=== PATIENT | female | born 1985 | race African-American/Black ===

== ENCOUNTER → 2019-12-11 | Outpatient (CLI) | payer OTHER | LOC: M SLEEP 19:34 | PROVIDERS: ATTEND Nurse Practitioner Family | DX: G47.33 Obstructive sleep apnea (adult) (pediatric) (principal) ==

== ENCOUNTER 2022-11-03 22:57 | Inpatient (IN) | payer OTHER ==
[~2022-11-03] VITALS: Ht 175.3 cm; Wt 131.5 kg
[2022-11-03] MEDS ORDERED: PROZ40CA PO (23:08)
[2022-11-03] MEDS ORDERED: PANTOPRAZOLE 40MG VIAL IV ONE (23:55)
[2022-11-03] MEDS ORDERED: GI COCKTAIL 50ML BTL(HYOSCYAMINE/MAALOX/LIDOCAINE VISCOUS)(1:3:1) PO ONE (23:55)
[2022-11-04] MEDS ORDERED: ISOVUE-370 76% 100ML VIAL As Ordered ONE (00:26)
[2022-11-04 00:29] LABS: BASO # 0.1 10^3/uL (0.0-0.2); BASO % 0.5 % (0.0-1.0); EOS # 0.3 10^3/uL (0.0-0.5); EOS % 3.1 % (0.0-3.0); HEMATOCRIT 40.6 % (36.0-47.0); HEMOGLOBIN 13.1 g/dl (12.0-15.5); LYMPH # 3.9 10^3/uL (1.5-5.0); LYMPH % 37.8 % (24.0-44.0); MEAN CORPUSCULAR HEMOGLOBIN 28.9 pg (27.0-33.0); MEAN CORPUSCULAR HGB CONC 32.3 g/dl (32.0-36.5); MEAN CORPUSCULAR VOLUME 89.6 fl (80.0-96.0); MONO # 0.7 10^3/uL (0.0-0.8); MONO % 6.4 % (2.0-8.0); NEUTROPHILS # 5.3 10^3/uL (1.5-8.5); NEUTROPHILS % 51.4 % (36.0-66.0); PLATELET COUNT, AUTOMATED 299 10^3/uL (150-450); RED BLOOD COUNT 4.53 10^6/uL (4.00-5.40); WHITE BLOOD COUNT 10.4 10^3/uL (4.0-10.0)
[2022-11-04] MEDS ORDERED: ONDANSETRON 4MG 2ML VIAL IV ONE (00:40)
[2022-11-04 01:02] LABS: ALBUMIN 3.7 G/DL (3.2-5.2); BILIRUBIN,DIRECT 0.1 MG/DL (<0.4); BILIRUBIN,TOTAL 0.4 MG/DL (0.3-1.2); TOTAL PROTEIN 7.8 G/DL (5.7-8.2)
[2022-11-04] MEDS ORDERED: CETI-24 PO (02:11)
[2022-11-04] MEDS ORDERED: MULT400T10 PO (02:11)
[2022-11-04] MEDS ORDERED: VITATAB73 PO (02:11)
[2022-11-04] MEDS ORDERED: MONT10TA97 PO (02:11)
[2022-11-04] MEDS ORDERED: FLUO1TAB3 PO (02:11)
[2022-11-04] MEDS ORDERED: MAGN400T2 PO (02:11)
[2022-11-04] MEDS ORDERED: AMIT10TA7 PO (02:11)
[2022-11-04] MEDS ORDERED: HOME MED LIST COMPLETE! XX SCH (02:15)
[2022-11-04] MEDS ORDERED: PIPERACILLIN/TAZOBACTAM SOD 3.375 GM in D5W MINI-BAG PLUS 50 ML IV ONE (02:20)
[2022-11-04] MEDS: NS 1,000 ML IV SCH ×2 (02:25→10:17)
[2022-11-04 02:41] LABS: RSV AMPLIFICATION NEGATIVE (NEGATIVE)
[2022-11-04 03:45] VITALS: BP 146/78
[2022-11-04 06:53] LABS: BASO # 0.1 10^3/uL (0.0-0.2); BASO % 0.5 % (0.0-1.0); EOS # 0.3 10^3/uL (0.0-0.5); EOS % 3.6 % (0.0-3.0); HEMATOCRIT 37.4 % (36.0-47.0); HEMOGLOBIN 12.1 g/dl (12.0-15.5); LYMPH # 3.9 10^3/uL (1.5-5.0); LYMPH % 41.6 % (24.0-44.0); MEAN CORPUSCULAR HEMOGLOBIN 28.9 pg (27.0-33.0); MEAN CORPUSCULAR HGB CONC 32.4 g/dl (32.0-36.5); MEAN CORPUSCULAR VOLUME 89.5 fl (80.0-96.0); MONO # 0.7 10^3/uL (0.0-0.8); MONO % 7.8 % (2.0-8.0); NEUTROPHILS # 4.2 10^3/uL (1.5-8.5); NEUTROPHILS % 45.4 % (36.0-66.0); PLATELET COUNT, AUTOMATED 291 10^3/uL (150-450); RED BLOOD COUNT 4.18 10^6/uL (4.00-5.40); WHITE BLOOD COUNT 9.3 10^3/uL (4.0-10.0)
[2022-11-04 07:13] LABS: BLOOD UREA NITROGEN 10 MG/DL (9-23); CALCIUM LEVEL 8.1 MG/DL (8.5-10.1); CARBON DIOXIDE LEVEL 25 MMOL/L (20-31); CHLORIDE LEVEL 106 MMOL/L (98-107); CREATININE FOR GFR 0.84 MG/DL (0.55-1.30); GLOMERULAR FILTRATION RATE > 60.0 (>60); GLUCOSE, FASTING 89 MG/DL (60-100); POTASSIUM SERUM 4.2 MMOL/L (3.5-5.1); SODIUM LEVEL 137 MMOL/L (136-145)
[2022-11-04 08:00] VITALS: BP 128/70
[2022-11-04] MEDS ORDERED: ENOXAPARIN 30MG/0.3ML SYRINGE (J1650 PER 10MG) SC SCH (09:00)
[2022-11-04 14:00] VITALS: BP 132/72
[2022-11-04] MEDS ORDERED: FIORICET TAB PO ONE (15:00)
[2022-11-04] MEDS ORDERED: metroNIDAZOLE (FLAGYL) 500MG TABLET PO SCH (16:00)
[2022-11-04] MEDS ORDERED: CIPR-249 PO (16:45)
[2022-11-04] MEDS ORDERED: METR-265 PO (16:46)
[2022-11-04] MEDS ORDERED: CIPROFLOXACIN 500MG TABLET PO SCH (18:00)
[2022-11-05] MEDS ORDERED: PANTOPRAZOLE 40MG VIAL IV SCH (09:00)
== END 2022-11-04 17:20 | disposition home or self-care (01) | DRG 392 ==
LOC: M ED 22:57 → M ED INP 11-04 02:24 → M PED 11-04 03:35
PROVIDERS: ADMIT Surgery; ATTEND Surgery
DX: A08.4 Viral intestinal infection, unspecified (principal); Z79.899 Other long term (current) drug therapy

== ENCOUNTER 2022-12-05 22:47 | Emergency (ER) | payer OTHER ==
[~2022-12-05] VITALS: Ht 175.3 cm; Wt 143.3 kg
[~2022-12-05 22:47] MED LIST: AMIT10TA7 PO; CETI-24 PO; CIPR-249 PO; FLUO1TAB3 PO; MAGN400T2 PO; METR-265 PO; MONT10TA97 PO; MULT400T10 PO; PROZ40CA PO; VITATAB73 PO
[2022-12-06 00:50] LABS: BASO # 0.1 10^3/uL (0.0-0.2); BASO % 0.6 % (0.0-1.0); EOS # 0.3 10^3/uL (0.0-0.5); HEMATOCRIT 38.1 % (36.0-47.0); HEMOGLOBIN 12.2 g/dl (12.0-15.5); LYMPH # 4.2 10^3/uL (1.5-5.0); MEAN CORPUSCULAR HEMOGLOBIN 29.1 pg (27.0-33.0); MEAN CORPUSCULAR VOLUME 90.9 fl (80.0-96.0); MONO # 0.8 10^3/uL (0.0-0.8); MONO % 7.8 % (2.0-8.0); NEUTROPHILS % 47.5 % (36.0-66.0); PLATELET COUNT, AUTOMATED 265 10^3/uL (150-450); RED BLOOD COUNT 4.19 10^6/uL (4.00-5.40); WHITE BLOOD COUNT 10.5 10^3/uL (4.0-10.0)
[2022-12-06 00:56] LABS: CK-MB VALUE MASS < 1.0 NG/ML (<3.6)
[2022-12-06 00:57] LABS: CPK CREATINE PHOSPHOKINASE 264 U/L (34-145); MB/CK RELATIVE INDEX 0.37 (< OR =4)
[2022-12-06 00:58] LABS: ALBUMIN 3.5 G/DL (3.2-5.2); ALKALINE PHOSPHATASE 102 U/L (46-116); ALT/SGPT 25 U/L (7.0-40); AST/SGOT 18 U/L (<34); BILIRUBIN,DIRECT 0.2 MG/DL (<0.4); BILIRUBIN,TOTAL 0.4 MG/DL (0.3-1.2); BLOOD UREA NITROGEN 11 MG/DL (9-23); CALCIUM LEVEL 8.8 MG/DL (8.5-10.1); CARBON DIOXIDE LEVEL 26 MMOL/L (20-31); CHLORIDE LEVEL 107 MMOL/L (98-107); CREATININE FOR GFR 0.78 MG/DL (0.55-1.30); GLOMERULAR FILTRATION RATE > 60.0 (>60); GLUCOSE, FASTING 99 MG/DL (60-100); POTASSIUM SERUM 3.7 MMOL/L (3.5-5.1); SODIUM LEVEL 137 MMOL/L (136-145)
[2022-12-06 01:05] LABS: INR 0.92; PROTHROMBIN TIME 12.6 SECONDS (12.5-14.5)
[2022-12-06 01:06] LABS: PARTIAL THROMBOPLASTIN TIME 25.8 SECONDS (24.8-34.2)
[2022-12-06] MEDS ORDERED: ONDANSETRON 4MG 2ML VIAL IV ONE (05:45)
[2022-12-06] MEDS ORDERED: GI COCKTAIL 50ML BTL(HYOSCYAMINE/MAALOX/LIDOCAINE VISCOUS)(1:3:1) PO ONE (05:45)
[2022-12-06] MEDS ORDERED: ISOVUE-370 76% 100ML VIAL As Ordered ONE (05:48)
[2022-12-06] MEDS ORDERED: OMEP40CA4 PO (08:50)
[2022-12-06] MEDS ORDERED: SUCR1TA PO (08:50)
[2022-12-06 08:58] VITALS: BP 138/72
== END 2022-12-06 09:01 | disposition home or self-care (01) ==
LOC: M ED 22:47
DX: R10.13 Epigastric pain (principal); K80.20 Calculus of gallbladder without cholecystitis without obstruction; R93.2 Abnormal findings on diagnostic imaging of liver and biliary tract; E05.90 Thyrotoxicosis, unspecified without thyrotoxic crisis or storm; Z79.899 Other long term (current) drug therapy
CPT/HCPCS: 36415; 74177; 80048; 80076; 81000; 81015; 82550; 82553; 83605; 84484; 85025; 85610; 85730; 96374; 99283; J2405; Q9967

== ENCOUNTER → 2023-02-21 | Outpatient (REF) | payer OTHER ==
[~2023-02-21] MED LIST changes: +OMEP40CA4 PO; +SUCR1TA PO
[2023-02-21 13:17] LABS: ALBUMIN 3.4 G/DL (3.2-5.2); BILIRUBIN,DIRECT 0.4 MG/DL (<0.4); BILIRUBIN,TOTAL 0.7 MG/DL (0.3-1.2); PHOSPHORUS LEVEL 2.9 MG/DL (2.5-4.9); TOTAL PROTEIN 7.1 G/DL (5.7-8.2)
[2023-02-21 13:21] LABS: TOTAL 25(OH) VITAMIN D 15.8 NG/ML (20.0-100.0)
== END ==
LOC: M SFHCRHEU 11:11
PROVIDERS: ATTEND Internal Medicine
DX: R74.8 Abnormal levels of other serum enzymes (principal); E55.9 Vitamin D deficiency, unspecified; R25.2 Cramp and spasm

== ENCOUNTER → 2023-04-18 | Outpatient (REF) | payer OTHER ==
[2023-04-18 17:57] LABS: HEMATOCRIT 37.7 % (36.0-47.0); MEAN CORPUSCULAR HEMOGLOBIN 28.5 pg (27.0-33.0); MEAN CORPUSCULAR HGB CONC 31.8 g/dl (32.0-36.5); MEAN CORPUSCULAR VOLUME 89.5 fl (80.0-96.0); PLATELET COUNT, AUTOMATED 285 10^3/uL (150-450); RED BLOOD COUNT 4.21 10^6/uL (4.00-5.40); WHITE BLOOD COUNT 6.1 10^3/uL (4.0-10.0)
[2023-04-18 18:15] LABS: HEPATITIS B SURFACE ANTIGEN NEGATIVE (NEGATIVE)
[2023-04-18 18:28] LABS: HIV 1&2 SCREEN NEGATIVE (NEGATIVE)
[2023-04-18 18:36] LABS: HEPATITIS C VIRUS ABY INDEX 0.11 INDEX (<0.8)
[2023-04-18 18:41] LABS: HCG, SERUM QUANTITATIVE 70461.3 MIU/ML (<4.2)
== END ==
LOC: M LAB REF 16:22
PROVIDERS: ATTEND Obstetrics & Gynecology
DX: O36.80X0 Pregnancy with inconclusive fetal viability, not applicable or unspecified (principal); Z32.01 Encounter for pregnancy test, result positive; Z79.899 Other long term (current) drug therapy; Z3A.00 Weeks of gestation of pregnancy not specified

== ENCOUNTER → 2023-05-02 | Outpatient (CLI) | payer OTHER | LOC: M RAD 10:34 | PROVIDERS: ATTEND Obstetrics & Gynecology | DX: O36.80X0 Pregnancy with inconclusive fetal viability, not applicable or unspecified (principal); Z3A.12 12 weeks gestation of pregnancy ==

== ENCOUNTER → 2023-06-25 | Outpatient (CLI) | payer OTHER | LOC: M RAD 06:37 | PROVIDERS: ATTEND Obstetrics & Gynecology | DX: Z34.82 Encounter for supervision of other normal pregnancy, second trimester (principal) ==

== ENCOUNTER → 2023-08-14 | Outpatient (CLI) | payer OTHER ==
[2023-08-14 12:56] LABS: HEMATOCRIT 32.7 % (36.0-47.0); HEMOGLOBIN 10.6 g/dl (12.0-15.5); MEAN CORPUSCULAR HEMOGLOBIN 29.5 pg (27.0-33.0); MEAN CORPUSCULAR HGB CONC 32.4 g/dl (32.0-36.5); MEAN CORPUSCULAR VOLUME 91.1 fl (80.0-96.0); PLATELET COUNT, AUTOMATED 306 10^3/uL (150-450); RED BLOOD COUNT 3.59 10^6/uL (4.00-5.40); WHITE BLOOD COUNT 9.9 10^3/uL (4.0-10.0)
== END ==
LOC: M WUC 08:49
PROVIDERS: ATTEND Obstetrics & Gynecology
DX: Z34.82 Encounter for supervision of other normal pregnancy, second trimester (principal)

== ENCOUNTER → 2023-09-16 | Outpatient (CLI) | payer OTHER | LOC: M WHC 08:27 | PROVIDERS: ATTEND Obstetrics & Gynecology | DX: O26.879 Cervical shortening, unspecified trimester (principal) ==

== ENCOUNTER → 2023-10-08 | Outpatient (REF) | payer OTHER | LOC: M LAB REF 13:14 | PROVIDERS: ATTEND Obstetrics & Gynecology | DX: Z34.83 Encounter for supervision of other normal pregnancy, third trimester (principal) ==

== ENCOUNTER 2023-11-04 15:29 | Inpatient (IN) | payer OTHER ==
[~2023-11-04] VITALS: Ht 175.3 cm; Wt 135.4 kg
[2023-11-04] MEDS ORDERED: VALT500T PO (16:16)
[2023-11-04 16:19] VITALS: BP 132/68
[2023-11-04] MEDS ORDERED: HOME MED LIST COMPLETE! XX SCH (16:20)
[2023-11-04] MEDS ORDERED: PENICILLIN G POTASSIUM 5 MU IV 5 MU in D5W MINI-BAG PLUS 100 ML IV STA (16:56)
[2023-11-04] MEDS ORDERED: LACTATED RINGER'S 1000 ML IV STA (16:56)
[2023-11-04] MEDS ORDERED: CARBOPROST TROMETHAMINE 250 MCG/ML AMP IM PRN (17:00)
[2023-11-04] MEDS ORDERED: LIDOCAINE 1% MDV 20ML VIAL INFIL PRN (17:00)
[2023-11-04] MEDS ORDERED: TRANEXAMIC ACID INJection 1,000 MG in NS 100 ML IV PRN (17:00)
[2023-11-04] MEDS ORDERED: OXYTOCIN DRIP 30 UNITS in IV 1 EA IV PRN (17:00)
[2023-11-04] MEDS ORDERED: METHYLERGONOVINE MALEATE 0.2MG/ML 1ML VIAL IM PRN (17:00)
[2023-11-04] MEDS ORDERED: OXYTOCIN INJ 10UNITS/ML 1ML VIAL IM PRN (17:00)
[2023-11-04 17:03] LABS: HEMATOCRIT 29.9 % (36.0-47.0); HEMOGLOBIN 9.8 g/dl (12.0-15.5); MEAN CORPUSCULAR HEMOGLOBIN 29.9 pg (27.0-33.0); MEAN CORPUSCULAR HGB CONC 32.8 g/dl (32.0-36.5); MEAN CORPUSCULAR VOLUME 91.2 fl (80.0-96.0); PLATELET COUNT, AUTOMATED 311 10^3/uL (150-450); RED BLOOD COUNT 3.28 10^6/uL (4.00-5.40)
[2023-11-04] MEDS ORDERED: miSOPROStol 50MCG 1/2 TABLET PO ONE (17:20)
[2023-11-04] MEDS: miSOPROStol 50MCG 1/2 TABLET PO SCH ×2 (17:42→22:26)
[2023-11-04 17:44] VITALS: BP 130/64
[2023-11-04] MEDS ORDERED: PEN G POT 3,000,000 UNIT/50 ML 3,000,000 UNIT in IV 1 EA IV SCH (21:00)
[2023-11-05] VITALS (48 sets, daily range): BP systolic 97–185; BP diastolic 52–110; O2SAT 99–100
[2023-11-05] MEDS ORDERED: PENICILLIN G POTASSIUM 5 MU IV 5 MU in D5W MINI-BAG PLUS 100 ML IV STA (00:28)
[2023-11-05] MEDS ORDERED: diphenhydrAMINE 50MG/ML VIAL IV PRN (00:30)
[2023-11-05] MEDS ORDERED: ONDANSETRON 4MG 2ML VIAL IV PRN (00:30)
[2023-11-05] MEDS ORDERED: LR 500 ML IV PRN (00:30)
[2023-11-05] MEDS ORDERED: ePHEDrine SULFATE 25 MG/5 ML(5MG/ML) SYRINGE IVP PRN (00:30)
[2023-11-05] MEDS ORDERED: NALOXONE INJ 0.4MG/1ML VIAL IV PRN (00:30)
[2023-11-05] MEDS ORDERED: EPIDURAL/PCA KEYS XX PRN (00:30)
[2023-11-05] MEDS ORDERED: LR 1,000 ML IV SCH (00:30)
[2023-11-05] MEDS ORDERED: OXYTOCIN DRIP 30 UNITS in IV 1 EA IV SCH ×2 (00:30→14:00)
[2023-11-05] MEDS: FENTANYL/ROPIVACAINE/NACL BAG 100 ML EPIDURAL SCH ×2 (01:39→09:09)
[2023-11-05] MEDS ORDERED: PEN G POT 3,000,000 UNIT/50 ML 3,000,000 UNIT in IV 1 EA IV SCH (05:00)
[2023-11-05] MEDS ORDERED: FLUoxetine 20MG CAP PO SCH (09:00)
[2023-11-05 14:00] LABS: CORD GAS ABE A -5.3; CORD GAS HCO3 A 20.9 MMOL/L; CORD GAS O2 SAT A 69.6 %; CORD GAS PCO2 A 43.1 mmHg; CORD GAS PH A 7.303 UNITS; CORD GAS PO2 A 29.9 mmHg; CORD GAS SBC A 19.5 MMOL/L; CORD GAS TCO2 A 22.2 MMOL/L
[2023-11-05] MEDS ORDERED: ACETAMINOPHEN 500 MG TAB PO PRN (14:00)
[2023-11-05] MEDS ORDERED: RHOGAM 300MCG (1500IU) INJ IM SCH (14:00)
[2023-11-05] MEDS ORDERED: ACETAMINOPHEN TAB 650MG DOSE (2X325MG) PO PRN (14:00)
[2023-11-05] MEDS ORDERED: DIBUCAINE 1% OINTMENT 30GM TOP PRN (14:00)
[2023-11-05] MEDS ORDERED: DOCUSATE SODIUM 100MG CAPSULE PO PRN (14:00)
[2023-11-05] MEDS ORDERED: METHYLERGONOVINE MALEATE 0.2 MG TAB PO PRN (14:00)
[2023-11-05 14:01] LABS: CORD GAS ABE V -2.9; CORD GAS HCO3 V 21.6 MMOL/L; CORD GAS O2 SAT V 83.4 %; CORD GAS PH V 7.384 UNITS; CORD GAS PO2 V 36.2 mmHg; CORD GAS SBC V 21.7 MMOL/L; CORD GAS TCO2 V 22.7 MMOL/L
[2023-11-05] MEDS: IBUPROFEN 600MG TAB PO PRN (20:41)
[2023-11-05] MEDS ORDERED: METHYLERGONOVINE MALEATE 0.2MG/ML 1ML VIAL IM STA (23:10)
[2023-11-06] VITALS (7 sets, daily range): BP systolic 121–159; BP diastolic 64–83; O2SAT 98–99
[2023-11-06] MEDS: IBUPROFEN 600MG TAB PO PRN ×2 (06:26→16:55)
[2023-11-06] MEDS: PRENATAL VITAMINS CHEWABLE TABLET PO SCH (09:01)
[2023-11-06] MEDS: IBUPROFEN 800 MG TAB PO PRN (21:57)
[2023-11-07 02:00] VITALS: BP 130/70; O2SAT 100
[2023-11-07] MEDS: IBUPROFEN 800 MG TAB PO PRN (05:18)
[2023-11-07 06:00] VITALS: BP 130/78; O2SAT 100
[2023-11-07] MEDS: PRENATAL VITAMINS CHEWABLE TABLET PO SCH (08:13)
[2023-11-07] MEDS ORDERED: MEASLES,MUMPS,RUBELLA VACCINE INJ (MMR-II) SC.IMMUN ONE (09:00)
[2023-11-07 10:00] VITALS: BP 146/70; O2SAT 100
[2023-11-07] MEDS ORDERED: ACET1TAB55 PO (10:19)
[2023-11-07] MEDS ORDERED: IBUP-1022 PO (10:19)
== END 2023-11-07 15:15 | disposition home or self-care (01) | DRG 806 ==
LOC: M LDI 15:29 → M OBS 11-05 15:30
PROVIDERS: ADMIT Advanced Practice Midwife; ATTEND Obstetrics & Gynecology
PROC: 3E0P7GC Introduction of Other Therapeutic Substance into Female Reproductive, Via Natural or Artificial Opening (ICD-10-PCS; 2023-11-04)
PROC: 10E0XZZ Delivery of Products of Conception, External Approach (ICD-10-PCS; principal; 2023-11-05)
PROC: 10907ZC Drainage of Amniotic Fluid, Therapeutic from Products of Conception, Via Natural or Artificial Opening (ICD-10-PCS; 2023-11-05)
DX: O99.344 Other mental disorders complicating childbirth (principal); Z37.0 Single live birth; O98.32 Other infections with a predominantly sexual mode of transmission complicating childbirth; O99.354 Diseases of the nervous system complicating childbirth; F41.9 Anxiety disorder, unspecified; F32.A Depression, unspecified; A60.09 Herpesviral infection of other urogenital tract; O99.214 Obesity complicating childbirth; E66.01 Morbid (severe) obesity due to excess calories; O99.284 Endocrine, nutritional and metabolic diseases complicating childbirth; E05.00 Thyrotoxicosis with diffuse goiter without thyrotoxic crisis or storm; G43.909 Migraine, unspecified, not intractable, without status migrainosus; O69.81X0 Labor and delivery complicated by cord around neck, without compression, not applicable or unspecified; Z79.899 Other long term (current) drug therapy; Z3A.39 39 weeks gestation of pregnancy

== ENCOUNTER 2024-02-05 12:46 | Day surgery (SDC) | payer OTHER ==
[~2024-02-05] VITALS: Ht 175.3 cm; Wt 127.5 kg
[~2024-02-05 12:46] MED LIST changes: +ACET1TAB55 PO; +IBUP-1022 PO; +VALT500T PO
[2024-02-05 13:19] LABS: HEMOGLOBIN 11.1 g/dl (12.0-15.5); MEAN CORPUSCULAR HEMOGLOBIN 27.8 pg (27.0-33.0); MEAN CORPUSCULAR HGB CONC 32.6 g/dl (32.0-36.5); MEAN CORPUSCULAR VOLUME 85.2 fl (80.0-96.0); PLATELET COUNT, AUTOMATED 292 10^3/uL (150-450); RED BLOOD COUNT 3.99 10^6/uL (4.00-5.40); WHITE BLOOD COUNT 7.9 10^3/uL (4.0-10.0)
[2024-02-05] MEDS ORDERED: LR 1,000 ML IV SCH ×3 (13:30→19:25)
[2024-02-05] MEDS ORDERED: SUGAMMADEX SODIUM 500 MG/5 ML VIAL (BRIDION) As Ordered ONE (15:17)
[2024-02-05] MEDS ORDERED: ROCURONIUM BROMIDE 50MG/5ML VIAL As Ordered ONE (15:17)
[2024-02-05] MEDS ORDERED: LIDOCAINE 2% 100MG/5ML SDV (FOR ANES.) As Ordered ONE (17:09)
[2024-02-05] MEDS ORDERED: fentaNYL 100 MCG/2 ML INJECTION As Ordered ONE (17:09)
[2024-02-05] MEDS ORDERED: propofoL 200 MG/20 ML VIAL As Ordered ONE (17:09)
[2024-02-05] MEDS ORDERED: MIDAZOLAM INJ 2MG/2ML VIAL As Ordered ONE (17:09)
[2024-02-05] MEDS ORDERED: dexmedeTOMIDine (4MCG/ML)200MCG/50ML BTL (PRECEDEX) As Ordered ONE (17:09)
[2024-02-05] MEDS ORDERED: ONDANSETRON 4MG 2ML VIAL As Ordered ONE (17:09)
[2024-02-05] MEDS ORDERED: KETOROLAC 60MG 2ML VIAL As Ordered ONE (17:09)
[2024-02-05] MEDS ORDERED: METHYLENE BLUE 0.5% (5MG/ML) 10 ML AMP (PROVAYBLUE) As Ordered ONE (17:43)
[2024-02-05] MEDS ORDERED: ACETAMINOPHEN 1000MG 100ML IV BAG As Ordered ONE (18:23)
[2024-02-05] MEDS ORDERED: HYDROmorphone HCL 2MG/ML 1ML VIAL As Ordered ONE (18:24)
[2024-02-05] MEDS ORDERED: PERC5TAB12 PO (19:09)
[2024-02-05] MEDS ORDERED: fentaNYL 100 MCG/2 ML INJECTION IV PRN (19:10)
[2024-02-05] MEDS ORDERED: METOCLOPRAMIDE INJ 10MG/2ML VIAL IV PRN (19:10)
[2024-02-05] MEDS ORDERED: oxyCODONE 5MG TAB PO PRN (19:10)
[2024-02-05] MEDS ORDERED: HYDROMORPHONE HCL 0.5 MG/ 0.5 ML SYRINGE IV PRN (19:10)
[2024-02-05] MEDS ORDERED: ONDANSETRON 4MG 2ML VIAL IV PRN (19:10)
[2024-02-05 20:05] VITALS: BP 154/87; TEMP 96.8; O2SAT 99
== END 2024-02-05 20:20 | disposition home or self-care (01) ==
LOC: M SDC 12:46
PROVIDERS: ATTEND Obstetrics & Gynecology
DX: Z30.2 Encounter for sterilization (principal); E05.00 Thyrotoxicosis with diffuse goiter without thyrotoxic crisis or storm; G47.30 Sleep apnea, unspecified
CPT/HCPCS: 36415; 58661; 81025; 85027; 86850; 86900; 86901; 88302; J0131; J0665; J1100; J1170; J1885; J2250; J2405; J3010; Q9968

== ENCOUNTER → 2025-05-21 | Outpatient (CLI) | payer OTHER ==
[~2025-05-21] MED LIST changes: +AMIT10TA11 PO; -AMIT10TA7 PO; +PERC5TAB12 PO
== END ==
LOC: M RAD 15:54
PROVIDERS: ATTEND Physician Assistant
DX: R80.1 Persistent proteinuria, unspecified (principal)